=== PATIENT | male | born 1980 | race Caucasian/White ===

== ENCOUNTER 2025-01-13 15:19 | Emergency (ER) | payer SELFPAY ==
[2025-01-13] VITALS (24 sets, daily range): BP systolic 132; BP diastolic 81; PULSE 56–85; TEMP 36.5; O2SAT 98
--- NOTE | 2025-01-13 15:37 | ECG_ITS ---
[facility] Test Date: 2025-01-13 Pat Name: SHASHANK BELLAMY Department: Room: - Gender: Male [employer]ician: : 1980 Requested By: [id number] Order Number: [id number] Reading MD: SAWYER SIMS M.D. Measurements Intervals [place] Rate: 65 P: 30 CO: 160 QRS: 20 QRSD: 104 T: 56 QT: 382 QTc: 394 Interpretive Statements 1100 Sinus rhythm [address] elevation 9130 borderline ECG No previous ECG available for comparison Electronically Signed On 01-13-2025 18:54:26 EDT by SAWYER SIMS M.D.
--- NOTE | 2025-01-13 15:37 | XR_ITS ---
[place] [id number] Patient Name: SHASHANK BELLAMY MRN: [id number] date: 1980 Sex: M Assigned Patient Location: ED.MAIN Current Patient Location: ED.MAIN Accession/Order Number: [id number] Exam Date: 01/13/2025 17:14 Report Date: 01/13/2025 17:16 At the request of: MANNY CHENEY Procedure: XR chest 1V XR chest 1V 01/13/2025 4:36 PM SIGNS AND SYMPTOMS: ^chest pain ^Y PROTOCOL: Frontal radiograph of the chest COMPARISON: None FINDINGS: The trachea is midline. The heart and mediastinal structures are within normal limits. The lung parenchyma is clear. The bony thorax is intact. XR/XR chest 1V IMPRESSION: No acute cardiopulmonary pathology. Impression dictated by: Girish Maxwell M.D. 01/13/2025 5:16 PM Dictation Location: [place] [address] Electronically authenticated by: [id number] Y Date: 01/13/2025 17:16
[2025-01-13 15:53] LABS: Hematocrit 43.1 % (42.0-54.0); Hemoglobin 14.9 g/dL (14.0-18.0); Immature Granulocytes Abs Auto 0.01 10^3/uL (0.00-0.03); Immature Granulocytes Pct Auto 0.2 % (0.0-0.5); Lymphocytes Absolute Auto 1.5 10^3/uL (1.2-3.8); Mean Corpuscular HGB Conc 34.6 g/dL (29.9-35.2); Mean Corpuscular Hemoglobin 30.2 pg (25.9-34.0); Mean Corpuscular Volume 87.2 fL (80.0-94.0); Platelet Count 182 10^3/uL (150-450); Red Blood Count 4.94 10^6/uL (4.70-6.10); White Blood Count 5.1 10^3/uL (4.0-11.0)
[2025-01-13] MEDS: ACETAMINOPHEN 500 MG TABLET 1000 MG PO (15:58)
[2025-01-13 16:12] LABS: Alanine Aminotransferase 44 U/L (16-63); Albumin Globulin Ratio 1.1; Albumin Level 4.0 g/dL (3.4-5.0); Alkaline Phosphatase 78 U/L (46-116); Anion Gap 9.4; Aspartate Amino Transferase 24 U/L (15-37); Blood Urea Nitrogen 10.0 mg/dL (7.0-18.0); Calcium 9.0 mg/dL (8.5-10.1); Carbon Dioxide 28.5 mmol/L (21.0-32.0); Chloride 105 mmol/L (98-107); Estimated GFR (African America >60 (>=60 mL/min/1.73m^2); Estimated GFR (Non-African Ame >60 (>=60 mL/min/1.73m^2); Globulin 3.5 g/dL; Glucose 94 mg/dL (74-106); Potassium 3.9 mmol/L (3.5-5.1); Sodium 139 mmol/L (136-145); Total Protein 7.5 g/dL (6.4-8.2)
--- NOTE | 2025-01-13 16:46 | ED_ITS ---
HPI HPI - General Adult General Chief complaint: Chest Pain Stated complaint: CHEST PAIN Time Seen by Provider: 01/13/25 15:24 Source: patient Mode of arrival: walk-in History of Present Illness HPI narrative: Patient presents to the ED with chest pain. He states he woke up with this morning. He states yesterday was a normal day he did not have any symptoms. He denies having any shortness of breath there is no alleviating or exacerbating factors at this time. He describes it as sharp sometimes achy in the left side of his chest and is nonradiating. Patient denies any abdominal pain nausea vomiting or diarrhea. He has been well otherwise. Patient has no pain in his extremities no numbness or tingling his extremities Patient has a history of hyperlipidemia and hyper tension he has never had any issues with acute coronary syndrome. He has never had a stress test or catheterization. Patient is not a smoker. No family history of any heart disease. He states he contacted his family doctor who recommended he come in for evaluation. Related Data Home Medications ?Medication ?Instructions ?Recorded ?Confirmed lisinopril 5 mg tablet mg 01/13/25 rosuvastatin 10 mg tablet mg 01/13/25 Allergies Allergy/AdvReac Type Severity Reaction Status Date / Time No Known Drug Allergies Allergy Verified 01/13/25 15:27 PFSH PFSH Social History Little interest or pleasure in doing things: not at all Feeling down, depressed, or hopeless: not at all Exam Constitutional Vital Signs, click to edit/add: Last Vital Signs Temp 97.7 F 01/13/25 15:24 Pulse 63 01/13/25 19:00 Resp 19 01/13/25 19:00 BP 132/81 01/13/25 15:26 Pulse Ox 98 01/13/25 15:26 Common normals: no apparent distress, average body habitus and oriented x3 General appearance: cooperative and comfortable [facility] Common normals: normocephalic and head/scalp atraumatic Head and scalp: normal to inspection Face and sinus: normal facial exam and sinuses nontender Nose: no nasal discharge External ear: external ears normal Tympanic membrane: TMs normal bilaterally Mouth: oral and palatal mucosa normal, lip normal and tongue normal Throat: posterior oropharynx normal and tonsils normal Eye Common normals: PERRL, EOMs intact bilaterally and conjunctivae normal General eye: normal appearance of both eyes Chest Common normals: inspection of chest normal and palpation of chest normal Chest: abnormal inspection of the chest Respiratory Common normals: normal respiratory effort, no retractions, no use of accessory muscles and clear to auscultation bilaterally Cardio Common normals: regular rate, regular rhythm, no murmurs and peripheral pulses 2+ throughout GI Common normals: Normal to inspection, nondistended, normoactive bowel sounds present, soft to palpation and non-tender Neuro Common normals: oriented x3, moves all extremities and no focal motor deficits Course Vital Signs Vital signs: Vital Signs Temperature 97.7 F 01/13/25 15:24 Pulse Rate 70 01/13/25 15:24 Respiratory Rate 16 01/13/25 15:24 Blood Pressure 132/81 01/13/25 15:24 Pulse Oximetry 98 01/13/25 15:24 Temperature 97.7 F 01/13/25 15:24 Pulse Rate 63 01/13/25 19:00 Respiratory Rate 19 01/13/25 19:00 Blood Pressure 132/81 01/13/25 15:26 Pulse Oximetry 98 01/13/25 15:26 Medical Decision Making MDM Narrative Medical decision making narrative: Patient presents to the ED with chest pain. He states he woke up with this morning. He states yesterday was a normal day he did not have any symptoms. He denies having any shortness of breath there is no alleviating or exacerbating factors at this time. He describes it as sharp sometimes achy in the left side of his chest and is nonradiating. Patient denies any abdominal pain nausea vomiting or diarrhea. He has been well otherwise. Patient has no pain in his extremities no numbness or tingling his extremities Patient has a history of hyperlipidemia and hyper tension he has never had any issues with acute coronary syndrome. He has never had a stress test or catheterization. Patient is not a smoker. No family history of any heart disease. He states he contacted his family doctor who recommended he come in for evaluation. Patient is alert and oriented resting comfortably in his room. Heart lung sounds are unremarkable. Abdomen is soft nontender. Chest pain is not reproducible on palpation. No sound of a murmur. No CVA tenderness. No back tenderness. Patient states he also has a mild headache. He states he woke up with that as well. He denies it being the worst headache ever or sudden onset. He states he just woke up with it is a little achy and he thinks sleep will take care of the headache. He denies visual changes. HEENT exam is unremarkable. EKG was performed on the patient. Patient's EKG was completed at 1530. Evaluated by ED attending. Patient does not have any signs of a STEMI. 65 bpm, AR interval 160, QRS 1 4, QT/QTc of 382/394. He has sinus rhythm with n onspecific changes. No previous for comparison. I discussed this all with the patient and he will follow-up with his PCP tomorrow. He is encouraged to return with any worsening concerning symptoms. Patient states the medication of Tylenol did help his discomfort both in his head and his chest. Patient will be discharged home with close follow-up with his PCP is agreeable to this plan of care will follow-up as discussed This patient presents with chest pain, with symptoms suggestive of noncardiac chest pain. History without high risk features: not substernal, no exertional component Minimal CAD risk factors (including age), Exam without evidence of volume overload. EKG without signs of active ischemia. HEART score: 2. Given the timing of pain to ER presentation, delta troponin to evaluate for NSTEMI negative. P resentation not consistent with acute PE (Wells low risk // PERC negative), pneumothorax, thoracic arotic dissection, cardiac effusion or tamponade. Differential Diagnosis Differential Diagnosis: acs, pneumonia, pleurisy, PE, Medical Records Medical records reviewed: Yes I reviewed the patient's medical records Lab Data Lab results reviewed: Yes I reviewed the patient's lab results Labs: Lab Results 01/13/25 01/13/25 Range/Units 15:47 17:25 WBC 5.1 (4.0-11.0) 10^3/uL RBC 4.94 (4.70-6.10) 10^6/uL Hgb 14.9 (14.0-18.0) g/dL Hct 43.1 (42.0-54.0) % MCV 87.2 (80.0-94.0) fL MCH 30.2 (25.9-34.0) pg MCHC 34.6 (29.9-35.2) g/dL RDW 12.6 (11.0-15.0) % Plt Count 182 (150-450) 10^3/uL MPV 11.2 (9.5-13.5) fL Neut % (Auto) 64.3 (43.0-75.0) % Lymph % (Auto) 28.8 (20.5-60.0) % [place] % (Auto) 5.3 (1.7-12.0) % Eos % (Auto) 0.6 L (0.9-7.0) % Baso % (Auto) 0.8 (0.2-2.0) % Neut # (Auto) 3.3 (1.4-6.5) 10^3/uL Lymph # (Auto) 1.5 (1.2-3.8) 10^3/uL [place] # (Auto) 0.3 (0.3-0.8) 10^3/uL Eos # (Auto) 0.0 (0.0-0.7) 10^3/uL Baso # (Auto) 0.0 (0.0-0.1) 10^3/uL Abs Immat Gran (auto) 0.01 (0.00-0.03) 10^3/uL Imm/Tot Granulo (auto) 0.2 (0.0-0.5) % Sodium 139 (136-145) mmol/L Potassium 3.9 (3.5-5.1) mmol/L Chloride 105 (98-107) mmol/L Carbon Dioxide 28.5 (21.0-32.0) mmol/L Anion Gap 9.4 BUN 10.0 (7.0-18.0) mg/dL Creatinine 0.73 (0.70-1.30) mg/dL Est GFR ( Amer) >60 (>=60 mL/min/1.73m^2) Est GFR (Non-Af Amer) >60 (>=60 mL/min/1.73m^2) BUN/Creatinine Ratio 13.7 Glucose 94 (74-106) mg/dL Calcium 9.0 (8.5-10.1) mg/dL Total Bilirubin 1.2 H (0.2-1.0) mg/dL AST 24 (15-37) U/L ALT 44 (16-63) U/L Alkaline Phosphatase 78 (46-116) U/L Troponin I High Sens 7.4 7.2 (4.0-76.1) pg/mL Total Protein 7.5 (6.4-8.2) g/dL Albumin 4.0 (3.4-5.0) g/dL Globulin 3.5 g/dL Albumin/Globulin Ratio 1.1 ECG Data Attestation: I personally reviewed and interpreted this ECG as follows: Discharge Plan Discharge Chief Complaint: Chest Pain Clinical Impression: Chest pain Qualifiers: Chest pain type: unspecified Qualified Code(s): R07.9 - Chest pain, unspecified Patient Disposition: Home, Self-Care Time of Disposition Decision: 19:05 Condition: Good Prescriptions / Home Meds: No Action lisinopril 5 mg tablet rosuvastatin 10 mg tablet Print Language: Japanese Instructions: Chest Pain (ED) Referrals: Jerald Ford MD [Physician, Family Practice] - 1 week Physician,Non-Staff, [Primary Care Provider] - 1 week Referral Note: Follow up with PCP tomorrow Discharge Date/Time: 01/13/25 19:17
== END 2025-01-13 19:17 | disposition home or self-care (01) ==
PROVIDERS: Physician Assistant; Emergency Provider Student in an Organized Health Care Education/Training Program
DX: R07.9 Chest pain, unspecified (principal); E78.5 Hyperlipidemia, unspecified; I10 Essential (primary) hypertension
CPT/HCPCS: 36415; 71045; 80053; 84484; 85025; 93005; 99285